=== PATIENT | male | born 1935 | race Caucasian/White ===

== ENCOUNTER 2017-08-26 20:48 | Emergency (ER) | payer OTHER, MEDICARE ==
[~2017-08-26] VITALS: Ht 185.4 cm; Wt 104.3 kg
[2017-08-26 20:54] VITALS: BP_SYST 143
[2017-08-26] MEDS ORDERED: LORazepam 2 MG/ML VIAL IVP ONE (22:00)
[2017-08-26 22:20] LABS: HEMATOCRIT 43.6 % (36-54); HEMOGLOBIN 14.6 g/dL (14.0-18.0); MEAN CORPUSCULAR HEMOGLOBIN 34 pg (27-31); MEAN CORPUSCULAR HGB CONC 34 % (32-36); MEAN CORPUSCULAR VOLUME 102 fL (79.0-98.0); PLATELET COUNT (AUTO) 146 K/uL (130-430); RED CELL DISTRIBUTION WIDTH 12.6 % (9.0-15.0); WHITE BLOOD COUNT (AUTO) 8.7 K/uL (4.8-10.8)
[2017-08-26] MEDS ORDERED: LORazepam 2 MG/ML VIAL (FOR ER USE) ONE (22:20)
[2017-08-26 22:27] LABS: ANION GAP 4 (5-15); CALCIUM 9.4 mg/dL (8.4-11.0); CHLORIDE 102 mmol/L (98-107); CREATININE 1.22 mg/dL (0.55-1.30); GLUCOSE 119 mg/dL (70-99); POTASSIUM 3.8 mmol/L (3.5-5.1); SODIUM SERUM 137 mmol/L (136-145); UREA NITROGEN, BLOOD 19 mg/dL (8-21)
[2017-08-26 22:32] LABS: ALANINE AMINOTRANSFERASE 36 U/L (12-78); ALBUMIN 3.7 g/dL (3.4-4.8); ASPARTATE AMINOTRANSFERASE 25 U/L (10-37); LIPASE 132 U/L (73-393); TOTAL BILIRUBIN 1.3 mg/dL (0.0-1.0)
[2017-08-26 22:44] LABS: BASOPHILS % (MANUAL) 0 % (0-2); EOSINOPHILS % (MANUAL) 2 % (0-7); LYMPHOCYTES % (MANUAL) 20 % (20-46); MONOCYTES % (MANUAL) 28 % (0-11)
[2017-08-26 22:48] LABS: INR 1.1 (0.80-1.20); PROTHROMBIN TIME 10.8 SECS (9.5-12.5)
[2017-08-26 23:29] VITALS: BP_SYST 143
== END 2017-08-26 23:29 | disposition home or self-care (01) ==
LOC: SED 20:48
DX: G62.9 Polyneuropathy, unspecified (principal); I10 Essential (primary) hypertension; Z95.1 Presence of aortocoronary bypass graft
CPT/HCPCS: 36415; 71045; 80053; 82550; 83690; 84484; 85007; 85027; 85610; 85730; 93005; 96374; 99285; J2060

== ENCOUNTER 2018-10-20 03:27 | Emergency (ER) | payer OTHER, MEDICARE ==
[~2018-10-20] VITALS: Ht 185.4 cm; Wt 108.9 kg
[2018-10-20 03:35] VITALS: BP_SYST 158
[2018-10-20] MEDS ORDERED: BACITRACIN 1 GM OINT TP ONE (04:00)
[2018-10-20 04:24] VITALS: BP_SYST 158
== END 2018-10-20 04:24 | disposition home or self-care (01) ==
LOC: SED 03:27
DX: S91.205A Unspecified open wound of left lesser toe(s) with damage to nail, initial encounter (principal); S00.31XA Abrasion of nose, initial encounter; R20.2 Paresthesia of skin; I10 Essential (primary) hypertension; W01.198A Fall on same level from slipping, tripping and stumbling with subsequent striking against other object, initial encounter; Y93.89 Activity, other specified; Y92.89 Other specified places as the place of occurrence of the external cause; Y99.8 Other external cause status
CPT/HCPCS: 99283

== ENCOUNTER 2019-06-03 23:04 | Emergency (ER) | payer OTHER, MEDICARE ==
[~2019-06-03] VITALS: Ht 185.4 cm; Wt 108.9 kg
[2019-06-03 23:16] VITALS: BP_SYST 151
--- NOTE | 2019-06-03 23:28 | NUR ---
Patient triaged and placed in waiting room. VSS and patient appears in no acute distress at this time. Accompanied by self, awaiting available bed, and MD notified of need for MSE.
--- NOTE | 2019-06-04 00:53 | NUR ---
Placed in room 6 . Placed on senior instrumentation engineer, blood pressure machine and pulse oximeter. To gown for exam. Side rails up. Report given to Denise DAVENPORT.
--- NOTE | 2019-06-04 00:59 | NUR ---
Pt presents to ER with c/o bilateral foot tingling. Pt A&Ox4. 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 Pt states tingling in legs presented around 10 pm when he was getting ready for bed. Pt states this has never happened before. Pt denies pain. Upon assessment, no discoloration or numbness present. Pt states he can feel when I touch feet. Cap refil <3 seconds, pt has full motion of feet and toes, sensation present with no swelling. Will continue to monitor.
--- NOTE | 2019-06-04 02:55 | NUR ---
Pt states he is getting worried about his and would like to go home. MD aware. Will continue to monitor.
--- NOTE | 2019-06-04 03:15 | NUR ---
ER Dr. Acosta at bedside examining patient.
[2019-06-04 03:20] VITALS: BP_SYST 178
--- NOTE | 2019-06-04 03:20 | NUR ---
Patient given written and verbal discharge instructions and verbalizes understanding. ER MD Acosta discussed with patient the results and treatment provided. Patient in stable condition. ID arm band removed. No Rx given. Patient educated on pain management and to follow up with PMD. Pain Scale 0/10. Opportunity for questions provided and answered. Medication side effect fact sheet provided.
== END 2019-06-04 03:20 | disposition home or self-care (01) ==
LOC: SED 23:04
DX: R20.2 Paresthesia of skin (principal); I10 Essential (primary) hypertension
CPT/HCPCS: 99283

== ENCOUNTER 2019-06-30 07:46 | Emergency (ER) | payer OTHER, MEDICARE ==
[~2019-06-30] VITALS: Ht 185.4 cm; Wt 108.9 kg
[2019-06-30 07:46] VITALS: BP_SYST 145
--- NOTE | 2019-06-30 07:46 | NUR ---
BROUGHT BACK TO BED #8 AND TRIAGED. REPORT GIVEN TO GLENDY
--- NOTE | 2019-06-30 07:48 | NUR ---
Patient arrived in the ED c/o numbness and tingling on bilateral ankles that started last night. Denied any chest pain or shortness of breath. Denied any fevers, chills, nausea or vomiting. Patient is alert and oriented x4, respirations even and unlabored, speaking in full sentences and ambulating with a steady gait. VSS, pain level 0/10. Informed of approximate wait time. Instructed to notify ED staff for any changes in condition or worsening of symptoms while waiting to be seen by a provider. Patient verbalized understanding.
--- NOTE | 2019-06-30 07:59 | NUR ---
ER Dr. Alvarenga at bedside examining patient.
--- NOTE | 2019-06-30 08:12 | NUR ---
ECG done at bedside as ordered by Dr. Alvarenga. Patient tolerated the procedure well. Report given to the MD for review.
--- NOTE | 2019-06-30 08:16 | NUR ---
biomed tech at bedside collecting blood specimen as ordered by Dr. Alvarenga. Patient tolerated the procedure well.
--- NOTE | 2019-06-30 08:20 | NUR ---
Hold off on the IV start per Dr. Alvarenga.
[2019-06-30 08:42] LABS: ANION GAP 7 (5-15); CALCIUM 9.2 mg/dL (8.4-11.0); CHLORIDE 103 mmol/L (98-107); CREATININE 0.98 mg/dL (0.55-1.30); GLUCOSE 116 mg/dL (70-99); POTASSIUM 3.9 mmol/L (3.5-5.1); SODIUM SERUM 139 mmol/L (136-145); UREA NITROGEN, BLOOD 22 mg/dL (8-21)
[2019-06-30 08:47] LABS: ALANINE AMINOTRANSFERASE 36 U/L (12-78); ALBUMIN 3.7 g/dL (3.4-4.8); ASPARTATE AMINOTRANSFERASE 31 U/L (10-37)
[2019-06-30 09:19] LABS: BASOPHILS % (AUTO) 0.2 % (0.0-2.0); EOSINOPHILS # (AUTO) 0.2 K/uL (0.0-0.4); EOSINOPHILS % (AUTO) 2.9 % (0.0-4.0); HEMATOCRIT 44.9 % (36-54); HEMOGLOBIN 15.2 g/dL (14.0-18.0); LYMPHOCYTES # (AUTO) 1.7 K/uL (1.0-5.5); LYMPHOCYTES % (AUTO) 30.6 % (20.5-51.5); MEAN CORPUSCULAR HEMOGLOBIN 36 pg (27-31); MEAN CORPUSCULAR HGB CONC 34 % (32-36); MEAN CORPUSCULAR VOLUME 105 fL (79.0-98.0); MONOCYTES # (AUTO) 1.6 K/uL (0.0-1.0); MONOCYTES % (AUTO) 30.2 % (1.7-9.3); NEUTROPHILS % (AUTO) 36.1 % (40.0-70.0); PLATELET COUNT (AUTO) 135 K/uL (130-430); RED BLOOD CELL COUNT(AUTO) 4.26 MIL/uL (4.2-6.2); RED CELL DISTRIBUTION WIDTH 13.3 % (9.0-15.0); WHITE BLOOD COUNT (AUTO) 5.4 K/uL (4.8-10.8)
--- NOTE | 2019-06-30 09:55 | NUR ---
ER Dr. Alvarenga at bedside re-examining patient.
--- NOTE | 2019-06-30 10:01 | NUR ---
Patient ambulated to the bathroom with a steady gait. Urine specimen collected and dropped off at the lab.
--- NOTE | 2019-06-30 10:13 | NUR ---
Patient given written and verbal discharge instructions and verbalizes understanding. ER MD discussed with patient the results and treatment provided. Patient in stable condition. ID arm band removed. Rx of Keflex given. Patient educated on pain management and to follow up with PMD. Pain Scale 0/10. Opportunity for questions provided and answered. Medication side effect fact sheet provided.
[2019-06-30 10:14] VITALS: BP_SYST 136
== END 2019-06-30 10:13 | disposition home or self-care (01) ==
LOC: SED 07:46
DX: R20.2 Paresthesia of skin (principal); I10 Essential (primary) hypertension; Z86.73 Personal history of transient ischemic attack (TIA), and cerebral infarction without residual deficits
CPT/HCPCS: 36415; 80053; 81002; 84484; 85025; 87086; 87186-TC; 93005; 99284

== ENCOUNTER 2020-10-23 23:15 | Inpatient (IN) | payer OTHER, MEDICARE, SELFPAY ==
[~2020-10-23] VITALS: Ht 185.4 cm; Wt 104.8 kg
[2020-10-23 23:16] VITALS: BP_SYST 140
[2020-10-24 00:25] LABS: HEMATOCRIT 41.3 % (36-54); HEMOGLOBIN 14.3 g/dL (14.0-18.0); MEAN CORPUSCULAR HEMOGLOBIN 36 pg (27-31); MEAN CORPUSCULAR HGB CONC 35 % (32-36); MEAN CORPUSCULAR VOLUME 103 fL (79.0-98.0); PLATELET COUNT (AUTO) 108 K/uL (130-430); RED CELL DISTRIBUTION WIDTH 13.2 % (9.0-15.0); WHITE BLOOD COUNT (AUTO) 8.9 K/uL (4.8-10.8)
[2020-10-24 00:36] LABS: ANION GAP 9 (5-15); CHLORIDE 106 mmol/L (98-107); CREATININE 1.08 mg/dL (0.55-1.30); GLUCOSE 110 mg/dL (70-99); POTASSIUM 3.6 mmol/L (3.5-5.1); SODIUM SERUM 143 mmol/L (136-145); UREA NITROGEN, BLOOD 28 mg/dL (8-21)
[2020-10-24 00:51] LABS: ALANINE AMINOTRANSFERASE 24 U/L (12-78); ALBUMIN 3.8 g/dL (3.4-4.8); ASPARTATE AMINOTRANSFERASE 23 U/L (10-37); THYROID STIMULATING HORMONE 7.05 uIu/mL (0.36-3.74); TOTAL BILIRUBIN 1.1 mg/dL (0.0-1.0)
[2020-10-24 00:54] LABS: ATYPICAL LYMPHOCYTES % 0 % (0-0); BAND % (MANUAL) 0 % (0-6); BASOPHILS % (MANUAL) 0 % (0-2); EOSINOPHILS % (MANUAL) 1 % (0-7); LYMPHOCYTES % (MANUAL) 30 % (20-46); MONOCYTES % (MANUAL) 36 % (0-11)
[2020-10-24 02:04] LABS: BILIRUBIN,URINE NEGATIVE (NEGATIVE); BLOOD, URINE NEGATIVE (NEGATIVE); CLARITY/URINE CLEAR (CLEAR); COLOR,URINE YELLOW (YELLOW); GLUCOSE,URINE NEGATIVE (NEGATIVE); KETONES,URINE NEGATIVE (NEGATIVE); LEUKOCYTE ESTERASE ,URINE TRACE (NEGATIVE); NITRITE, URINE NEGATIVE (NEGATIVE); PROTEIN URINE NEGATIVE (NEGATIVE)
[2020-10-24 02:06] LABS: BACTERIA,URINE FEW /HPF (None Seen); RBC,URINE 0-3 /HPF (0-3)
[2020-10-24] MEDS ORDERED: ASPIRIN 81 MG TAB.CHEW PO ONE (02:15)
[2020-10-24 03:29] VITALS: BP_SYST 146
[2020-10-24 08:00] VITALS: BP_SYST 137
[2020-10-24] MEDS: ASPIRIN 81 MG TAB.CHEW PO SCH ×2 (08:54→09:22)
[2020-10-24] MEDS ORDERED: CALC200T47 PO (11:53)
[2020-10-24] MEDS ORDERED: MULT-1089 PO (11:53)
[2020-10-24] MEDS ORDERED: METO50TA7 PO (11:53)
[2020-10-24] MEDS ORDERED: LIP10 PO (11:54)
[2020-10-24] MEDS ORDERED: ASPI-1155 PO (11:54)
[2020-10-24] MEDS ORDERED: LISI1TAB55 PO (11:54)
[2020-10-24 12:30] VITALS: BP_SYST 143
[2020-10-24 16:02] VITALS: BP_SYST 135
[2020-10-24] MEDS ORDERED: ATORVASTATIN 10 MG TABLET PO SCH (21:00)
[2020-10-25 07:07] LABS: FOLATE (FOLIC ACID) >20.0 ng/mL (>3.0)
[2020-10-25] MEDS ORDERED: METOPROLOL SUCCINATE 50 MG TAB.SR.24H (TOPROL XL) PO SCH (09:00)
[2020-10-25] MEDS ORDERED: lisinopriL 20 MG TABLET PO SCH (12:00)
[2020-10-25] MEDS ORDERED: HYDROCHLOROTHIAZIDE 12.5 MG CAPSULE (HCTZ) PO SCH (12:00)
[2020-10-25] MEDS ORDERED: ASPIRIN 81 MG TAB.CHEW PO SCH (12:00)
== END 2020-10-24 16:30 | disposition home or self-care (01) | DRG 74 ==
LOC: SED 23:15 → STU 10-24 02:11
PROVIDERS: ADMIT Internal Medicine; ATTEND Internal Medicine
DX: G62.9 Polyneuropathy, unspecified (principal); I10 Essential (primary) hypertension; I25.10 Atherosclerotic heart disease of native coronary artery without angina pectoris; Z87.891 Personal history of nicotine dependence; Z79.899 Other long term (current) drug therapy; Z95.1 Presence of aortocoronary bypass graft
CPT/HCPCS: 36415; 70450-TC; 70551; 71045; 72148; 76376; 80053; 81000; 82550; 82607; 82746; 83880; 84439; 84443; 84484; 85007; 85027; 93005; 93306; 99291; G0378